=== PATIENT | female | born 1965 | race Caucasian/White ===

== ENCOUNTER → 2024-05-24 | Outpatient (CLI) | payer BC, SELFPAY ==
[2024-05-24 18:01] LABS: Amphetamine/Methamp Scrn,U Negative (Negative); Barbiturate Screen,Urine Negative (Negative); Benzodiazepines Screen,Urine Negative (Negative); Benzoylecgonine Screen, Ur Negative (Negative); Fentanyl Screen,Urine Negative (Negative); Opiate Screen,Urine Negative (Negative); THC Screen,Urine Negative (Negative)
== END | disposition home or self-care (01) ==
LOC: SLDO 16:18
PROVIDERS: PCP Family Medicine; Referring Provider Family Medicine; Visit Provider Family Medicine
DX: Z79.891 Long term (current) use of opiate analgesic (principal)
CPT/HCPCS: 80307

== ENCOUNTER → 2024-06-08 | Outpatient (CLI) | payer BC, SELFPAY ==
[2024-06-08 15:46] LABS: Collection Type, Urine Clean Catch
[2024-06-08 16:45] LABS: Bilirubin,Urine Negative (Negative); Blood,Urine Negative (Negative); Clarity,Urine Clear (Clear/Hazy); Color,Urine Yellow (Lt Yel-Yel); Glucose, Urine Negative (Negative); Ketones,Urine Negative (Negative); Leukocyte Esterase,Urine Negative (Negative); Nitrite,Urine Negative (Negative); Protein,Urine Negative (Neg - Trace); RBC,Urine 7 /hpf (0-3); Specific Gravity,Urine 1.027 (1.001-1.035); Squamous Epithelial Cell,Urine < 1 /hpf (0-5); Urobilinogen,Urine Negative mg/dL (0.0-1.0); WBC,Urine 2 /hpf (0-5)
== END | disposition home or self-care (01) ==
LOC: SLDO 15:38
PROVIDERS: PCP Registered Nurse; Referring Provider Registered Nurse; Visit Provider Registered Nurse
DX: G43.009 Migraine without aura, not intractable, without status migrainosus (principal); R11.2 Nausea with vomiting, unspecified
CPT/HCPCS: 81001; 87086

== ENCOUNTER → 2024-06-08 | Outpatient (CLI) | payer BC, SELFPAY ==
[2024-06-08 11:03] LABS: Basophils % (Auto) 1 % (0-2.5); Eosinophils # (Auto) 0.1 Thou/mm3 (0.0-0.5); Eosinophils % (Auto) 3 % (0-10); Hematocrit 38.4 % (36.0-46.0); Hemoglobin 12.4 g/dL (12.0-16.0); Immature Granulocytes % (Auto) 0 % (0-0); Immature Granulocytes Auto 0.01 Thou/mm3 (0.00-0.00); Lymphocytes # (Auto) 1.8 Thou/mm3 (1.0-4.8); Lymphocytes % (Auto) 36 % (10-50); Mean Corpuscular HGB Conc 32.3 g/dl (31.0-37.0); Mean Corpuscular Volume 84 fL (80-100); Monocytes # (Auto) 0.3 Thou/mm3 (0.0-0.8); Monocytes % (Auto) 6 % (0-12); Neutrophils # (Auto) 2.7 Thou/mm3 (1.8-7.7); Neutrophils % (Auto) 54 % (37-80); Nucleated Red Blood Cell % 0 /100 WBC (0); Platelet Count 259 Thou/mm3 (140-440); RDW Standard Deviation 40.5 fL (36.4-46.3)
[2024-06-08 12:07] LABS: Alanine Aminotransferase 12 U/L (10-49); Albumin, Serum 4.4 gm/dL (3.5-5.0); Albumin/Globulin Ratio 1.8 (1.2-2.2); Alkaline Phosphatase 83 U/L (46-116); Anion Gap 9 (7-16); Aspartate Amino Transferase 13 U/L (0-34); BUN/Creatinine Ratio 14 Ratio (12-20); Bilirubin,Total 0.4 mg/dL (0.3-1.2); Blood Urea Nitrogen 10 mg/dL (9-23); Calcium 9.9 mg/dL (8.3-10.6); Calcium (Corrected) 9.9 mg/dL (8.5-10.1); Carbon Dioxide 26.5 mMol/L (20.0-31.0); Chloride 106 mMol/L (98-107); Creatinine (Component) 0.7 mg/dL (0.6-1.3); Globulin 2.4 gm/dL (2.3-3.5); Glucose 106 mg/dL (74-106); Osmolality,Calculated 280 (275-295); Potassium 4.2 mMol/L (3.4-5.1); Sodium 141 mMol/L (136-145); Total Protein 6.8 gm/dL (5.7-8.2); eGFR > 60 See Note
== END | disposition home or self-care (01) ==
LOC: COPL 10:25
PROVIDERS: PCP Family Medicine; Referring Provider Registered Nurse; Visit Provider Registered Nurse
DX: R11.2 Nausea with vomiting, unspecified (principal); R42 Dizziness and giddiness; H53.8 Other visual disturbances
CPT/HCPCS: 36415; 80053; 85025

== ENCOUNTER → 2024-06-16 | Outpatient (CLI) | payer BC, SELFPAY ==
--- NOTE | 2024-06-16 17:00 | XR_ITS ---
Examinations: MRI Brain without intravenous contrast. MRI brain with intravenous contrast MRA brain with intravenous contrast. MRA brain without intravenous contrast MRA neck with intravenous contrast Date and time of exam: June 26, 2024 1702 hrs. Indications: Headaches dizziness episodes beginning 2 weeks ago with visual disturbances Technique: Multiple axial and sagittal images of the brain have been obtained Siemens high-resolution 1.5 Camille short bore scanner is utilized. Sagittal sections, T1-weighted, TR 500, TE 14 Axial sections proton density and T2-weighted, TR 3,000, TE 34, TR 3,000, TE 91 Inversion recovery axial images, TR 9,260, TE 111, TI 2,500 Diffusion weighted images, axial sections, TR 4,800, TE 128, B value 1,000 Axial sections, ADC map, TR 4,800, TE 128. Contrast images have been obtained post intravenous 19 cc Gadolinium. T1-weighted axial and coronal images post contrast have been obtained. Angiographic images of neck and brain are obtained pre and post contrast. 3-D post processing performed, including brain, extracranial neck arterial maximum intensity projections Findings: Sellaturcica is not enlarged. The optic chiasm and infundibular stalk are not remarkable. Prepontine and interpeduncular cisterns are not enlarged. No localized enlargement of the medulla or david. Fourth ventricle and cerebellar tonsils normal in position. Subacute hemorrhage is not seen. Fourth ventricle is midline. Mass in the cerebellopontine angle region is not evident. 7th and 8th nerve complexes exhibits symmetry. Globes are symmetrical with no retro-orbital mass. Increased white matter signal evident, scattered punctate foci increased signal in the cerebral white matter Diffusion-weighted images demonstrateno foci restricted diffusion. Mass-effect upon the ventricular system is not identified. Abnormal contrast enhancement is not seen. MRA brain carotid images no significant carotid stenoses, no cerebral large vessel arterial occlusions Impression: Negative for acute hemorrhage mass effect or midline shift No acute infarct Scattered punctate foci increased signal in the cerebral white matter, seen with demyelinating disease No significant carotid stenoses No cerebral large vessel arterial occlusions or thrombus
== END | disposition home or self-care (01) ==
PROVIDERS: PCP Registered Nurse; Referring Provider Registered Nurse; Visit Provider Registered Nurse
DX: R90.82 White matter disease, unspecified (principal); G37.9 Demyelinating disease of central nervous system, unspecified
CPT/HCPCS: 70546; 70548; 70553; A9579

== ENCOUNTER 2024-07-12 09:24 | Emergency (ER) | payer BC, SELFPAY ==
[2024-07-12 09:25] VITALS: BMI 26.6
[2024-07-12 09:32] VITALS: BP 167/110; PULSE 79; RESP 18; TEMP 36.7; O2SAT 98; BMI 26.6
--- NOTE | 2024-07-12 09:47 | PD.EDHA ---
ED Headache RME/HPI General Chief Complaint: Headache Stated Complaint: MIGRAINE X 2 WKS, NAUSEA Time Seen by Provider: 07/12/24 09:38 Arrival date/time: 07/12/24 09:24 RME / HPI RME / HPI Narrative: DR. GOLDMAN MAIN ED EVALUATION 58 y/o female with Hx of migraines and hyperthyroidism presents to ED c/o nausea and light sensitivity x 2 days and constant headache x 2 weeks. Patient states she has been self-treating with 2 Ibuprofen at morning and night with some relief. Patient reports passing out in her restroom approximately 3 weeks ago, but denies any recent injury. Patient was last seen by PCP yesterday (07/11/2024). Patient's most recent head CT was unremarkable. Patient's recent visit with cardiology due to concern with elevated blood pressure was also unremarkable. Patient is requesting Toradol for pain. Patient is wearing sunglasses indoors, but does not report any other modifying factors. No other concerns or complaints expressed at this time. Related Data Home Medications ?Medication ?Instructions ?Recorded ?Confirmed lisinopril 40 mg tablet 40 mg PO QDAY 12/20/23 12/20/23 metoprolol succinate 25 mg 25 mg PO QDAY 12/20/23 12/20/23 tablet,extended release 24 hr tramadol 25 mg tablet 25 mg PO Q6H 12/20/23 12/20/23 trazodone 50 mg tablet 50 mg PO QDAY 12/20/23 12/20/23 Previous Rx's ?Medication ?Instructions ?Recorded clonidine HCl 0.1 mg tablet 0.1 mg PO Q8H PRN hypertensive 07/12/24 emergency #14 tabs Allergies Allergy/AdvReac Type Severity Reaction Status Date / Time Latex, Natural Rubber Allergy Verified 07/12/24 09:28 Review of Systems Review of Systems Systems Reviewed: All systems reviewed, normal except as documented Narrative Review of Systems: Gen: No fever, no chills, no weight loss, + headache EYES: No discharge, + light sensitivity, no pain HEENT: No ear pain, no congestion, no sore throat PULM: No shortness of breath, no cough, no congestion CV: No chest pain, no dyspnea on exertion, no palpitations GI: + nausea, no vomiting, no diarrhea, no pain, no constipation : No frequency, no urgency,? no dysuria Musc/skel: No joint pain, no back pain Skin: No rash? Psyc: No hallucinations, no depression Heme/Lymph: No easy bleeding or bruising tendencies Neuro: No weakness, + headache Past Medical History Past Medical History CARDIAC: Positive Hypertension GASTROINTESTINAL: Positive Gastrointestinal Disorders and Gastrointestinal Bleed (2021) GENITOURINARY: Positive Genitourinary Disorders, Kidney Stones and Inguinal Hernia ENDOCRINE: Positive Hyperthyroidism HEMATOLOGIC: Positive Blood Disorders and Anemia Surgical History SURGICAL: Positive Tonsillectomy (1971), Gastric Bypass Surgery (2004) and Tubal Ligation (1988) Social History SMOKING STATUS: Former smoker ED Exam Narrative Physical exam: GEN. APPEARANCE: The patient is alert awake oriented X-3 no distress, lying down comfortably, does not look ill/toxic.? Patient has good eye contact.? Patient is cooperative. VITALS:? All vitals were reviewed and the pulse ox is []% on room air which is normal according to my interpretation. HEENT: Normocephalic, atraumatic.? Pupils are equal and reactive.? Oral mucosa is moist. Patent Nares NECK: Supple, nontender, no thyromegaly, no meningismus, no JVD, no step offs CHEST: Symmetrical, atraumatic, and with equal expansion , Nontender on palpation no deformity and no crepitus. CARDIOVASCULAR: Heart regular rhythm no murmur or gallop rub or extra beats. LUNGS: Clear to auscultation bilaterally with symmetrical chest rise.? No laboring tachypnea or wheezing.? No intercostal subcostal retraction.? No rales and no rhonchi. ABDOMEN: Soft, flat, nontender to palpation, no guarding or rebound tenderness.? There are no abnormal masses palpated.? Active and normal bowel sounds. EXTREMITIES: Nontender.? No edema.? No cyanosis.? Patient is able to move all 4 extremities well, with full ROM and good CSM. SKIN: Warm and dry, no jaundice or rashes noted. MUSCULOSKELETAL: right temporal tenderness, but no TMJ, trigger points to the upper trapezius BL w/ referred pain to the head which make the headache worse. Course Quality Measures none Orders Category Date Time Status Insert IV NOW Care 07/12/24 09:49 Active Basic Metabolic Panel Stat Lab 07/12/24 10:04 Completed CBC Stat Lab 07/12/24 10:04 Completed Sed Rate (ESR) Stat Lab 07/12/24 10:04 Completed Acetaminophen Ivpb [Ofirmev Inj] Med 07/12/24 11:59 Active 1,000 mg in 100 ml IV Q6HR Ketorolac Inj [Toradol Inj] Med 07/12/24 09:48 Discontinued 30 mg IVP X1 ONE LORazepam [Ativan] Med 07/12/24 11:03 Discontinued 0.5 mg PO X1 ONE LORazepam [Ativan] Med 07/12/24 11:58 Discontinued 0.5 mg PO X1 ONE Ondansetron Inj [Zofran Inj] Med 07/12/24 09:48 Active 4 mg IV Q1H PRN Sodium Chloride 0.9% 1000 ml [Ns] 1,000 ml Med 07/12/24 09:48 Discontinued IV 999 mls/hr cloNIDine HCL [Catapres] Med 07/12/24 11:58 Discontinued 0.1 mg PO X1 ONE cloNIDine HCL [Catapres] Med 07/12/24 11:03 Discontinued 0.2 mg PO X1 ONE Vital Signs Vital signs: Vital Signs Temperature 98.0 F 07/12/24 09:32 Pulse Rate 79 07/12/24 09:32 Respiratory Rate 18 07/12/24 09:32 Blood Pressure 167/110 H 07/12/24 09:32 Pulse Oximetry (%) 98 07/12/24 09:32 Oxygen Delivery Method Room Air 07/12/24 09:32 Headache MDM Narrative MDM Narrative:: IRosey am scribing for and in the presence of Dr. Sudarshan Goldman. 58 y/o female with Hx of migraines and hyperthyroidism presents to ED c/o nausea and light sensitivity x 2 days and constant headache x 2 weeks. Physical exam findings show a little bit of right temporal tenderness, but no TMJ, trigger points to the upper trapezius with referred pain to the head which make the headache worse. Patient's systolic BP >160 and diastolic >90. Based on exam findings and patient's SxS, the diagnosis at this time is consistent with headache and elevated blood pressure that is out of control. Probable musculoskeletal related headache with patient having facet tenderness on right side of neck. Trigger points of trapezius bilaterally supporting a musculoskeletal headache. I doubt space occupying lesion as head CT was negative per patient. Patient will be treated with Toradol for pain management. Zofran will also be given for management of nausea. Patient is advised to have plenty of fluids, Tylenol (500 mg) 2 tablets every 6 hours in combination with Advil (400 mg) gel caps 2 tablets every 6 hours as needed. Patient was recently prescribed Amlodipine and will be increased to 10 mg per day. Patient will also be prescribed Clonidine .1 q8 hours. Patient is advised to follow-up with PCP for new or worsening symptoms. Patient data External records reviewed:: [facility] previous records (I reviewed most recent ED visit from 12/20/[address]23 for angina pectoris by Dr. Dot Lamas.) Clinical information provided by:: patient Social determinants that could affect healthcare access:: none Patient has the following chronic illnesses:: Migraines, Hyperthyroidism How is presenting disease/condition affected by chronic disease/condition?: exacerbated by Evaluation data The following diagnostics were reviewed and interpreted by me:: lab results Lab and/or radiology exams considered but not ordered:: None Interpretation Summary: Within normal limits. Medications / Prescriptions Medications or Prescriptions considered but not ordered:: None Medication administrations:: Medication Administration History Acetaminophen (Ofirmev Inj) 1,000 mg in 100 mls @ 250 mls/hr IV Q6HR EMILIANA Stop: 07/13/24 06:23 Last Admin: 07/12/24 12:08 Dose: 250 mls/hr Documented By: TAYLOR Ondansetron HCl (Ondansetron Inj 2 Mg/Ml Inj 2 Ml) 4 mg IV Q1H PRN PRN Reason: NAUSEA OR VOMITING Last Admin: 07/12/24 10:15 Dose: 4 mg Documented By: KEVIN Discontinued Medications Clonidine (Clonidine Hcl 0.1 Mg Tablet) 0.2 mg PO X1 ONE Stop: 07/12/24 11:04 Last Admin: 07/12/24 11:52 Dose: 0.2 mg Documented By: TAYLOR Clonidine (Clonidine Hcl 0.1 Mg Tablet) 0.1 mg PO X1 ONE Stop: 07/12/24 11:59 Sodium Chloride (Ns) 1,000 mls @ 999 mls/hr IV .Q1H1M ONE Stop: 07/12/24 10:48 Last Admin: 07/12/24 10:17 Dose: 999 mls/hr Documented By: KEVIN Ketorolac Tromethamine (Ketorolac Inj 30 Mg/Ml Vial) 30 mg IVP X1 ONE Stop: 07/12/24 09:49 Last Admin: 07/12/24 10:14 Dose: 30 mg Documented By: RD Lorazepam (Lorazepam 0.5 Mg Tablet) 0.5 mg PO X1 ONE Stop: 07/12/24 11:04 Last Admin: 07/12/24 11:54 Dose: 0.5 mg Documented By: ML Lorazepam (Lorazepam 0.5 Mg Tablet) 0.5 mg PO X1 ONE Stop: 07/12/24 11:59 See above if any. Consultations Consultation(s) initiated? (list below): No Diagnosis Differential diagnosis headache: migraine, tension headache, headache and other (Musculoskeletal related headache vs Hypertension) Most likely diagnosis given after review of the tests above:: Headache, elevated blood pressure that is out of control Admission Indicated Admission indicated?: not indicated Admission Request Was there a request for admission?: No Disposition Plan Disposition Plan: Discharge Discharge Attestation Discharge Attestation: The patient and all family members were given an opportunity to ask questions and understood the discharge instructions. Discharge instructions specifically effects, indications for sooner follow up or return to the emergency department, and the expected course of current diagnosis. Patient condition: Stable Discharge Plan Plan Patient Disposition: HOME (Self Care) Prescriptions/Referrals Prescriptions/Med Rec: No Action trazodone 50 mg Tablet 50 mg PO QDAY metoprolol succinate 25 mg tablet extended release 24 hr 25 mg PO QDAY Patient Comments: take 1 tablet by mouth once daily lisinopril 40 mg tablet 40 mg PO QDAY Patient Comments: take 1 tablet by mouth once daily tramadol 25 mg Tablet 25 mg PO Q6H Referrals: Marleny Hunter MD [Primary Care Provider] - In 1 week Problem List Clinical Impression: Headache, Elevated blood pressure reading in office without diagnosis of hypertension Patient/Caregiver Discharge Instructions Education Materials: Self-Care for Headaches Additional Instructions: Patient is advised to have plenty of fluids, Tylenol (500 mg) 2 tablets every 6 hours in combination with Advil (400 mg) gel caps 2 tablets every 6 hours as needed. Patient was recently prescribed Amlodipine and will be increased to 10 mg per day. Patient will also be prescribed Clonidine .1 Q8 hours. Patient is advised to follow-up with PCP for new or worsening symptoms. Print Language: New Zealander Stand Alone Forms: Kristie Award Info., Patient Portal Info Letter
[2024-07-12 10:08] LABS: Basophils # (Auto) 0.1 Thou/mm3 (0.0-0.2); Basophils % (Auto) 1 % (0-2.5); Eosinophils # (Auto) 0.2 Thou/mm3 (0.0-0.5); Eosinophils % (Auto) 4 % (0-10); Hematocrit 39.2 % (36.0-46.0); Hemoglobin 12.8 g/dL (12.0-16.0); Immature Granulocytes % (Auto) 0 % (0-0); Immature Granulocytes Auto 0.01 Thou/mm3 (0.00-0.00); Lymphocytes # (Auto) 1.6 Thou/mm3 (1.0-4.8); Lymphocytes % (Auto) 28 % (10-50); Mean Corpuscular HGB Conc 32.7 g/dl (31.0-37.0); Mean Corpuscular Hemoglobin 26.6 pg (25.0-35.0); Mean Corpuscular Volume 81 fL (80-100); Monocytes # (Auto) 0.4 Thou/mm3 (0.0-0.8); Monocytes % (Auto) 8 % (0-12); Neutrophils # (Auto) 3.5 Thou/mm3 (1.8-7.7); Neutrophils % (Auto) 60 % (37-80); Nucleated Red Blood Cell % 0 /100 WBC (0); Platelet Count 264 Thou/mm3 (140-440); RDW Standard Deviation 39.8 fL (36.4-46.3); Red Blood Count 4.82 Miln/mm3 (4.00-5.20); White Blood Count 5.8 Thou/mm3 (3.6-11.0)
[2024-07-12] MEDS: KETOROLAC INJ 30 MG/ML VIAL IVP (10:14)
[2024-07-12] MEDS: ONDANSETRON INJ 2 MG/ML INJ 2 ML 4 MG IV (10:15)
[2024-07-12] MEDS: SODIUM CHLORIDE 0.9% 1000 ML 1,000 ML 999 ML IV (10:17)
[2024-07-12 10:25] LABS: Anion Gap 7 (7-16); BUN/Creatinine Ratio 27 Ratio (12-20); Blood Urea Nitrogen 19 mg/dL (9-23); Calcium 9.9 mg/dL (8.3-10.6); Carbon Dioxide 28.5 mMol/L (20.0-31.0); Chloride 107 mMol/L (98-107); Creatinine (Component) 0.7 mg/dL (0.6-1.3); Estimated Creatinine Clearance 90.6 mL/min (>60); Glucose 95 mg/dL (74-106); Osmolality,Calculated 285 (275-295); Potassium 4.1 mMol/L (3.4-5.1); Sodium 142 mMol/L (136-145); eGFR > 60 See Note
[2024-07-12 11:52] VITALS: BP 163/94; PULSE 70
[2024-07-12] MEDS: cloNIDine HCL 0.1 MG TABLET 0.2 MG PO (11:52)
[2024-07-12] MEDS: LORazepam 0.5 MG TABLET PO (11:54)
[2024-07-12 12:02] VITALS: BP 163/94; PULSE 60; RESP 16; TEMP 36.7; O2SAT 99
[2024-07-12] MEDS: ACETAMINOPHEN IVPB 1,000 MG/100 ML VIAL 250 MG IV (12:08)
[2024-07-12 12:33] VITALS: BP 112/80; PULSE 70
[2024-07-12 12:51] LABS: Sed Rate (ESR) 23 mm/hr (0-30)
--- NOTE | 2024-07-12 13:00 | PD.EDHA ---
ED Headache RME/HPI General Chief Complaint: Headache Stated Complaint: MIGRAINE X 2 WKS, NAUSEA Time Seen by Provider: 07/12/24 09:38 Arrival date/time: 07/12/24 09:24 RME / HPI RME / HPI Narrative: DR. GOLDMAN MAIN ED EVALUATION 58 y/o female with Hx of migraines and hyperthyroidism presents to ED c/o nausea and light sensitivity x 2 days and constant headache x 2 weeks. Patient states she has been self-treating with 2 Ibuprofen at morning and night with some relief. Patient reports passing out in her restroom approximately 3 weeks ago, but denies any recent injury. Patient was last seen by PCP yesterday (07/11/2024). Patient's most recent head CT was unremarkable. Patient's recent visit with cardiology due to concern with elevated blood pressure was also unremarkable. Patient is requesting Toradol for pain. Patient is wearing sunglasses indoors, but does not report any other modifying factors. No other concerns or complaints expressed at this time. Related Data Home Medications ?Medication ?Instructions ?Recorded ?Confirmed lisinopril 40 mg tablet 40 mg PO QDAY 12/20/23 12/20/23 metoprolol succinate 25 mg 25 mg PO QDAY 12/20/23 12/20/23 tablet,extended release 24 hr tramadol 25 mg tablet 25 mg PO Q6H 12/20/23 12/20/23 trazodone 50 mg tablet 50 mg PO QDAY 12/20/23 12/20/23 Allergies Allergy/AdvReac Type Severity Reaction Status Date / Time Latex, Natural Rubber Allergy Verified 07/12/24 09:28 Review of Systems Review of Systems Systems Reviewed: All systems reviewed, normal except as documented Narrative Review of Systems: Gen: No fever, no chills, no weight loss EYES: No discharge, + light sensitivity, no pain HEENT: No ear pain, no congestion, no sore throat PULM: No shortness of breath, no cough, no congestion CV: No chest pain, no dyspnea on exertion, no palpitations GI: + nausea, no vomiting, no diarrhea, no pain, no constipation : No frequency, no urgency,? no dysuria Musc/skel: No joint pain, no back pain Skin: No rash? Psyc: No hallucinations, no depression Heme/Lymph: No easy bleeding or bruising tendencies Neuro: No weakness, + headache Course Quality Measures none Orders Category Date Time Status Insert IV NOW Care 07/12/24 09:49 Active Basic Metabolic Panel Stat Lab 07/12/24 10:04 Completed CBC Stat Lab 07/12/24 10:04 Completed Sed Rate (ESR) Stat Lab 07/12/24 10:04 Completed Acetaminophen Ivpb [Ofirmev Inj] Med 07/12/24 11:59 Active 1,000 mg in 100 ml IV Q6HR Ketorolac Inj [Toradol Inj] Med 07/12/24 09:48 Discontinued 30 mg IVP X1 ONE LORazepam [Ativan] Med 07/12/24 11:03 Discontinued 0.5 mg PO X1 ONE LORazepam [Ativan] Med 07/12/24 11:58 Discontinued 0.5 mg PO X1 ONE Ondansetron Inj [Zofran Inj] Med 07/12/24 09:48 Active 4 mg IV Q1H PRN Sodium Chloride 0.9% 1000 ml [Ns] 1,000 ml Med 07/12/24 09:48 Discontinued IV 999 mls/hr cloNIDine HCL [Catapres] Med 07/12/24 11:58 Discontinued 0.1 mg PO X1 ONE cloNIDine HCL [Catapres] Med 07/12/24 11:03 Discontinued 0.2 mg PO X1 ONE Vital Signs Vital signs: Vital Signs Temperature 98.0 F 07/12/24 09:32 Pulse Rate 79 07/12/24 09:32 Respiratory Rate 18 07/12/24 09:32 Blood Pressure 167/110 H 07/12/24 09:32 Pulse Oximetry (%) 98 07/12/24 09:32 Oxygen Delivery Method Room Air 07/12/24 09:32 Headache Medications / Prescriptions Medication administrations:: Medication Administration History Acetaminophen (Ofirmev Inj) 1,000 mg in 100 mls @ 250 mls/hr IV Q6HR EMILIANA Stop: 07/13/24 06:23 Last Admin: 07/12/24 12:08 Dose: 250 mls/hr Documented By: ML Ondansetron HCl (Ondansetron Inj 2 Mg/Ml Inj 2 Ml) 4 mg IV Q1H PRN PRN Reason: NAUSEA OR VOMITING Last Admin: 07/12/24 10:15 Dose: 4 mg Documented By: RD Discontinued Medications Clonidine (Clonidine Hcl 0.1 Mg Tablet) 0.2 mg PO X1 ONE Stop: 04/02/25 11:04 Last Admin: 07/12/24 11:52 Dose: 0.2 mg Documented By: TAYLOR Clonidine (Clonidine Hcl 0.1 Mg Tablet) 0.1 mg PO X1 ONE Stop: 07/12/24 11:59 Sodium Chloride (Ns) 1,000 mls @ 999 mls/hr IV .Q1H1M ONE Stop: 07/12/24 10:48 Last Admin: 07/12/24 10:17 Dose: 999 mls/hr Documented By: KEVIN Ketorolac Tromethamine (Ketorolac Inj 30 Mg/Ml Vial) 30 mg IVP X1 ONE Stop: 07/12/24 09:49 Last Admin: 07/12/24 10:14 Dose: 30 mg Documented By: KEVIN Lorazepam (Lorazepam 0.5 Mg Tablet) 0.5 mg PO X1 ONE Stop: 07/12/24 11:04 Last Admin: 07/12/24 11:54 Dose: 0.5 mg Documented By: TAYLOR Lorazepam (Lorazepam 0.5 Mg Tablet) 0.5 mg PO X1 ONE Stop: 07/12/24 11:59 Discharge Plan Plan Patient Disposition: HOME (Self Care) Prescriptions/Referrals Prescriptions/Med Rec: No Action trazodone 50 mg Tablet 50 mg PO QDAY metoprolol succinate 25 mg tablet extended release 24 hr 25 mg PO QDAY Patient Comments: take 1 tablet by mouth once daily lisinopril 40 mg tablet 40 mg PO QDAY Patient Comments: take 1 tablet by mouth once daily tramadol 25 mg Tablet 25 mg PO Q6H Referrals: Marleny Hunter MD [Primary Care Provider] - In 1 week Problem List Clinical Impression: Headache, Elevated blood pressure reading in office without diagnosis of hypertension Patient/Caregiver Discharge Instructions Education Materials: Self-Care for Headaches Additional Instructions: Patient is advised to have plenty of fluids, Tylenol (500 mg) 2 tablets every 6 hours in combination with Advil (400 mg) gel caps 2 tablets every 6 hours as needed. Follow-up with PCP for further evaluation and treatment. Print Language: Turkish Stand Alone Forms: Kristie Award Info., Patient Portal Info Letter
[2024-07-12] MEDS: MORPHINE SULF INJ 10 MG/ML VIAL 4 MG IVP (13:22)
== END 2024-07-12 13:32 | disposition home or self-care (01) ==
PROVIDERS: Emergency Provider Family Medicine; PCP Family Medicine
DX: R51.9 Headache, unspecified (principal); R03.0 Elevated blood-pressure reading, without diagnosis of hypertension
CPT/HCPCS: 36415; 80048; 85025; 85652; 96365; 96375; J0131; J1885; J2270; J2405; J7030; A9270

== ENCOUNTER 2025-01-29 05:55 | Emergency (ER) | payer BC, SELFPAY ==
[2025-01-29 05:57] VITALS: BMI 25.5
--- NOTE | 2025-01-29 06:04 | EKG_ITS ---
[facility] Test Date: 2025-01-29 Pat Name: ALEXUS LAND Department: Room: - Gender: Female [place]: : 1965 Requested By: ED Temporary Provider Order Number: [id number] Reading MD: ED Temporary Provider Measurements Intervals [place]ahan Rate: 75 P: 22 MI: 125 QRS: 18 QRSD: 86 T: 26 QT: 357 QTc: 400 Interpretive Statements SINUS RHYTHM POSSIBLE LEFT ATRIAL ENLARGEMENT [-0.1mV P-WAVE IN V1/V2] LOW QRS VOLTAGE IN PRECORDIAL LEADS [QRS DEFLECTION < 1.0 mV IN CHEST LEADS] SEPTAL MYOCARDIAL INFARCTION , PROBABLY OLD [40+ ms Q WAVE IN V1/V2] Compared to ECG 12/17/2023 10:29:31 Myocardial infarct finding now present /store/S0/[id number]
[2025-01-29 06:09] VITALS: BP 145/110; BP 158/116; PULSE 80; RESP 18; TEMP 36.5; O2SAT 99
--- NOTE | 2025-01-29 06:18 | EDRME_ITS ---
[facility]apid [facility] Screening [facility] Arrival date/time: 01/29/25 05:55 59-year-old female with a history of hypertension presents to the emergency room with a chief complaint of left arm tingling and chest discomfort x 2 days. Patient also states she has been unable to control her blood pressure. I have greeted and performed a focused initial assessment of this patient. A comprehensive ED assessment and evaluation of the patient, analysis of all test results, and completion of the medical decision making process will be conducted by additional ED providers. Chief Complaint: Extremity Injury, Upper Time Seen by Provider: 01/29/25 06:06 Vital signs: Vital Signs Temperature 97.7 F 01/29/25 06:09 Pulse Rate 80 01/29/25 06:09 Respiratory Rate 18 01/29/25 06:09 Blood Pressure 145/110 H 01/29/25 06:09 Pulse Oximetry (%) 99 01/29/25 06:09 Oxygen Delivery Method Room Air 01/29/25 06:09 Vital signs reviewed by provider: Yes
[2025-01-29 06:33] VITALS: BP 145/110; PULSE 80
[2025-01-29 06:40] LABS: Collection Type, Urine Clean Catch
[2025-01-29 06:41] LABS: Basophils # (Auto) 0.0 Thou/mm3 (0.0-0.2); Basophils % (Auto) 1 % (0-2.5); Eosinophils # (Auto) 0.2 Thou/mm3 (0.0-0.5); Eosinophils % (Auto) 3 % (0-10); Hematocrit 38.7 % (36.0-46.0); Hemoglobin 12.4 g/dL (12.0-16.0); Immature Granulocytes Auto 0.01 Thou/mm3 (0.00-0.00); Lymphocytes # (Auto) 2.8 Thou/mm3 (1.0-4.8); Lymphocytes % (Auto) 45 % (10-50); Mean Corpuscular HGB Conc 32.0 g/dl (31.0-37.0); Mean Corpuscular Hemoglobin 27.0 pg (25.0-35.0); Mean Corpuscular Volume 84 fL (80-100); Monocytes # (Auto) 0.5 Thou/mm3 (0.0-0.8); Monocytes % (Auto) 8 % (0-12); Neutrophils # (Auto) 2.7 Thou/mm3 (1.8-7.7); Neutrophils % (Auto) 43 % (37-80); Nucleated Red Blood Cell # 0.00 Thou/mm3 (0.00-0.00); Nucleated Red Blood Cell % 0 /100 WBC (0); Platelet Count 275 Thou/mm3 (140-440); RDW Standard Deviation 40.1 fL (36.4-46.3); Red Blood Count 4.60 Miln/mm3 (4.00-5.20); White Blood Count 6.3 Thou/mm3 (3.6-11.0)
[2025-01-29 07:06] LABS: INR 1.0 (0.9-1.3); Partial Thromboplastin Time 27.8 Seconds (22.0-36.0); Prothrombin Time 10.3 Seconds (9.0-12.2)
[2025-01-29 07:16] LABS: B-Type Natriuretic Peptide 21 pg/mL (0-100)
[2025-01-29 07:18] LABS: Alanine Aminotransferase 11 U/L (10-49); Albumin, Serum 4.3 gm/dL (3.5-5.0); Albumin/Globulin Ratio 1.6 (1.2-2.2); Alkaline Phosphatase 94 U/L (46-116); Anion Gap 10 (7-16); Aspartate Amino Transferase 22 U/L (0-34); BUN/Creatinine Ratio 20 Ratio (12-20); Bilirubin,Total 0.4 mg/dL (0.3-1.2); Blood Urea Nitrogen 16 mg/dL (9-23); Calcium 9.5 mg/dL (8.3-10.6); Calcium (Corrected) 9.5 mg/dL (8.5-10.1); Carbon Dioxide 29.0 mMol/L (20.0-31.0); Chloride 104 mMol/L (98-107); Creatinine (Component) 0.8 mg/dL (0.6-1.3); Estimated Creatinine Clearance 79.5 mL/min (>60); Globulin 2.7 gm/dL (2.3-3.5); Glucose 105 mg/dL (74-106); Magnesium 1.8 mg/dL (1.6-2.6); Osmolality,Calculated 286 (275-295); Potassium 3.7 mMol/L (3.4-5.1); Sodium 143 mMol/L (136-145); Total Protein 7.0 gm/dL (5.7-8.2); Troponin I < 0.020 ng/mL (0.0-0.045); eGFR > 60 See Note
[2025-01-29 07:22] LABS: Amphetamine/Methamp Scrn,U Negative (Negative); Barbiturate Screen,Urine Negative (Negative); Benzodiazepines Screen,Urine Negative (Negative); Benzoylecgonine Screen, Ur Negative (Negative); Fentanyl Screen,Urine Negative (Negative); Opiate Screen,Urine Negative (Negative); THC Screen,Urine Negative (Negative)
[2025-01-29 07:32] LABS: Bilirubin,Urine Negative (Negative); Blood,Urine 1+ (Negative); Calcium Oxalate Crystals,Urine 2+; Clarity,Urine Turbid (Clear/Hazy); Color,Urine Yellow (Lt Yel-Yel); Glucose, Urine Negative (Negative); Ketones,Urine Negative (Negative); Leukocyte Esterase,Urine Positive (Negative); Nitrite,Urine Negative (Negative); PH,Urine 5.5 (5.0-7.0); Protein,Urine Trace (Neg - Trace); RBC,Urine 16 /hpf (0-3); Specific Gravity,Urine 1.034 (1.001-1.035); Squamous Epithelial Cell,Urine 4 /hpf (0-5); Transitional Epi Cells,Urine 1 /hpf (0-5); Urobilinogen,Urine 2.0 mg/dL (0.0-1.0); WBC,Urine 84 /hpf (0-5)
[2025-01-29 07:40] LABS: Culture Indicated,Urine Yes
[2025-01-29 08:00] VITALS: BP 107/79; PULSE 52; RESP 16; O2SAT 94
[2025-01-29 09:30] VITALS: BP 105/81; PULSE 62; RESP 16; TEMP 36.6; O2SAT 97
--- NOTE | 2025-01-29 11:29 | PD.EDADULT ---
ED General RME/HPI General Chief complaint: Extremity Injury, Upper Stated complaint: HTN L ARM PAIN Time Seen by Provider: 01/29/25 06:06 Arrival date/time: 01/29/25 05:55 RME / HPI RME / HPI narrative: 01/29/25 05:55 59-year-old female with a history of hypertension presents to the emergency room with a chief complaint of left arm tingling and chest discomfort x 2 days. Patient also states she has been unable to control her blood pressure. I have greeted and performed a focused initial assessment of this patient. A comprehensive ED assessment and evaluation of the patient, analysis of all test results, and completion of the medical decision making process will be conducted by additional ED providers. DR. SOSA MAIN ED EVALUATION 59 year old female with history of hypertension presents to the ED for evaluation of pressure-like chest pain beginning 2 days ago. Pain located most to the left side of chest with radiation down her left arm. Rating as 8/10 in severity. Accompanied by elevated blood pressure (SBP 150s at home), also beginning several days ago. No other associated symptoms reported. Denies fever, chills, sweating. Denies cough, shortness of breath. Denies nausea, vomiting, diarrhea, constipation. Denies dysuria, urinary frequency and urgency. Related Data Home Medications ?Medication ?Instructions ?Recorded ?Confirmed lisinopril 40 mg tablet 40 mg PO QDAY 12/20/23 12/20/23 metoprolol succinate 25 mg 25 mg PO QDAY 12/20/23 12/20/23 tablet,extended release 24 hr tramadol 25 mg tablet 25 mg PO Q6H 12/20/23 12/20/23 trazodone 50 mg tablet 50 mg PO QDAY 12/20/23 12/20/23 Previous Rx's ?Medication ?Instructions ?Recorded clonidine HCl 0.1 mg tablet 0.1 mg PO Q8H PRN hypertensive 07/12/24 emergency #14 tabs clonidine HCl 0.1 mg tablet 0.1 mg PO Q8H PRN elevated blood 01/29/25 pressure #10 tabs Allergies Allergy/AdvReac Type Severity Reaction Status Date / Time Latex, Natural Rubber Allergy Verified 07/12/24 09:28 Review of Systems Review of Systems Systems Reviewed: All systems reviewed, normal except as documented Past Medical History Past Medical History CARDIAC: Positive Hypertension GASTROINTESTINAL: Positive Gastrointestinal Disorders and Gastrointestinal Bleed GENITOURINARY: Positive Genitourinary Disorders, Kidney Stones and Inguinal Hernia ENDOCRINE: Positive Hyperthyroidism HEMATOLOGIC: Positive Blood Disorders and Anemia Surgical History SURGICAL: Positive Tonsillectomy, Gastric Bypass Surgery and Tubal Ligation Social History SMOKING STATUS: Never smoker ED Exam Narrative Physical exam: GENERAL APPEARANCE: alert and oriented x 4, well-developed, well-nourished, no acute distress HEENT: Normocephalic, atraumatic; pupils equal, round, reactive to light; EOMI; mucous membranes pink, moist; oropharynx clear NECK: Supple LUNGS: CTABL; no wheezes, no rales, no rhonchi HEART: Regular rate, regular rhythm; normal S1, S2; no murmurs ABDOMEN: non distended; normal BS; soft, no tenderness, no guarding, no rebound; no masses, no organomegaly, no hernia BACK: no CVA tenderness EXTREMITIES: atraumatic; no edema NEUROLOGIC: awake; alert and oriented x4; cranial nerves II-XII grossly intact PSYCHIATRIC: appropriate mood and affect SKIN: warm, dry, normal color; no rashes Course Course Course Narrative: Patient remains clinically stable throughout the emergency department visit. We reviewed all the results, analysis, and treatment plans. Patient is amenable to discharge. Strict return precautions were outlined. Quality Measures none Orders Category Date Time Status EKG (ED ONLY) *Do not use* NOW Care 01/29/25 06:04 Completed EKG (ED Only) Stat Exams 01/29/25 06:04 Draft B-Type Natriuretic Peptide Stat Lab 01/29/25 06:26 Completed CBC Stat Lab 01/29/25 06:26 Completed Comprehensive Metabolic Panel Stat Lab 01/29/25 06:26 Completed Drug Screen,Urine Stat Lab 01/29/25 06:35 Completed Magnesium Stat Lab 01/29/25 06:26 Completed Partial Thromboplastin Time Stat Lab 01/29/25 06:26 Completed Prothrombin Time with INR Stat Lab 01/29/25 06:26 Completed Troponin I Stat Lab 01/29/25 06:26 Completed Urinalysis, C/S if Indicated Stat Lab 01/29/25 06:35 Completed Urine Culture Stat Lab 01/29/25 06:35 Received cloNIDine HCL [Catapres] Med 01/29/25 06:15 Discontinued 0.2 mg PO X1 ONE Vital Signs Vital signs: Vital Signs Temperature 97.7 F 01/29/25 06:09 Pulse Rate 80 01/29/25 06:09 Respiratory Rate 18 01/29/25 06:09 Blood Pressure 145/110 H 01/29/25 06:09 Pulse Oximetry (%) 99 01/29/25 06:09 Oxygen Delivery Method Room Air 01/29/25 06:09 Pulse ox is 99% on room air which is adequate. Discharge Plan Plan Patient Disposition: HOME (Self Care) Prescriptions/Referrals Prescriptions/Med Rec: New clonidine HCl 0.1 mg tablet 0.1 mg PO Q8H PRN (Reason: elevated blood pressure) Qty: 10 0RF No Action trazodone 50 mg Tablet 50 mg PO QDAY metoprolol succinate 25 mg tablet extended release 24 hr 25 mg PO QDAY Patient Comments: take 1 tablet by mouth once daily lisinopril 40 mg tablet 40 mg PO QDAY Patient Comments: take 1 tablet by mouth once daily tramadol 25 mg Tablet 25 mg PO Q6H clonidine HCl 0.1 mg tablet 0.1 mg PO Q8H MDD 0.3 mg PRN (Reason: hypertensive emergency) Qty: 14 0RF Rx Instructions: take for BP>160, Diastolic>90 Referrals: Marleny Hunter MD [Primary Care Provider, Family Practice] - In 1 week Problem List Clinical Impression: Hypertensive urgency, Left arm pain Patient/Caregiver Discharge Instructions Education Materials: ED High Blood Pressure ... Print Language: Ghanaian Stand Alone Forms: Kristie Award Info., Work/School Release, Patient Portal Info Letter MDM Narrative MDM hospital course (for use when minimal MDM required): Cynthia Vuong am scribing for and in the presence of Dr. Sosa. Clinical Information Provided by: patient Medical Records reviewed [facility] Meds/Rx considered, not ordered None Labs/Rad/Tests considered, not ordered None Chronic Illness/Social Conditions which may negatively complicate care or outcome(s)-explain: None or not applicable EKG Interpretation EKG #1: EKG Interpretation: EKG @ 06:08 AM. NSR, rate 75, no STEMI. Labs Labs: interpreted by [facility] Lab(s) Interpretation(s): Troponin negative UA with 84 WBC, 16 RBC, positive leukocyte esterase, no bacteria. Patient is asymptomatic at this time. Urine culture pending. Imaging Imaging interpretation: none Medication Administration(s) Medication Administration History Discontinued Medications Clonidine (Clonidine Hcl 0.1 Mg Tablet) 0.2 mg PO X1 ONE Stop: 01/29/25 06:16 Last Admin: 01/29/25 06:33 Dose: 0.2 mg Documented By: MICHAEL See above Diagnosis Diagnoses ruled out and/or further discussions: Hypertensive urgency Left arm pain
== END 2025-01-29 09:49 | disposition home or self-care (01) ==
PROVIDERS: Nurse Practitioner Family; Emergency Provider Emergency Medicine; PCP Family Medicine
DX: M79.602 Pain in left arm (principal); I10 Essential (primary) hypertension; I16.0 Hypertensive urgency
CPT/HCPCS: 36415; 80053; 80307; 81001; 83735; 83880; 84484; 85025; 85610; 85730; 87077; 87086; 87186; 93005; 99283; A9270